=== PATIENT | female | born 1950 | race Caucasian/White ===

== ENCOUNTER → 2019-03-26 12:38 | Outpatient (CLI) | payer MEDICARE, OTHER, SELFPAY ==
--- NOTE | 2019-03-26 12:53 | VDLE_ITS ---
Reason For Study: Venous Insufficiency RIGHT LEFT CFV is compressible, spontaneous, phasic, CFV is compressible, spontaneous, phasic, competent and demonstrates normal competent, and demonstrates normal augmentation. augmentation. FV is compressible, spontaneous, phasic, FV is compressible, spontaneous, phasic, competent and demonstrates normal competent and demonstrates normal augmentation. augmentation. POP V is compressible, spontaneous, phasic, POP V is compressible, spontaneous, phasic, competent and demonstrates normal competent and demonstrates normal augmentation. augmentation. T/P Trunk is compressible. T/P Trunk is compressible. PTV is compressible. PTV is compressible. RT PerV is compressible. LT PerV is compressible. Nonvascularized structure noted in the SFJ is competent. popliteal fossa measuring 1.89 x 2.36 x 2.72 GSV is competent. cm. SSV is competent. SFJ is competent. GSV above knee is competent. GSV below knee is INCOMPETENT for greater than 0.5 seconds and measures 0.46 x 0.47 cm. SSV is competent. Procedure Exam performed in department. Interpretation Summary Deep veins of the lower extremities are bilaterally patent and compressible segmentally. There is no evidence of deep vein thrombosis on either side. Valvular competence appears intact within the proximal deep venous systems bilaterally. The greater saphenous veins appear bilaterally patent and compressible segmentally. Sapheno-femoral junctions are bilaterally competent . The right greater saphenous vein appears competent above the knee. The right greater saphenous vein appears incompetent below the knee. The left greater saphenous vein appears segmentally competent. Small saphenous veins are patent and competent bilaterally. A non-vascular, hypoechoic structure is noted in the right popliteal space, measuring 1.89 cm x 2.36 cm x 2.72 cm. This probably represents a popliteal cyst. Clinical correlation is advised. Ordering Physician: Marion Adams Referring Physician: Hussain Daniels Performed By: Briana Meeks RVT
== END ==
PROVIDERS: Family Provider Nurse Practitioner Family; PCP Nurse Practitioner Family; Referring Provider Podiatrist; Visit Provider Podiatrist
DX: R60.0 Localized edema (principal); I87.2 Venous insufficiency (chronic) (peripheral)
CPT/HCPCS: 93970